=== PATIENT | female | born 1975 | race Caucasian/White ===

== ENCOUNTER → 2017-02-12 | Outpatient (CLI) | payer MEDICAID ==
[~2017-02-12] MED LIST: ASP81TEC PO; ATEN50TA PO; BARIATRIC VITAMIN PO; BREX2TAB PO; CALC600T12 PO; CARB1TAB44 PO; CETI10CA PO; CETI10TA17 PO; DOCU100T7 PO; DOXE25CA2 PO; HCT25T PO; HYDR-3816 PO; IBUP-1773 PO; LISI-552 PO; LISI10TA2 PO; LISI40TA PO; LVT.1T PO; MONT10TA21 PO; MTF500T PO; PANT40TA3 PO; TPR100T PO; TRAM-21 PO; TRAZ100T92 PO; VENL150C PO; VENL225T PO; VENL225T3 PO
--- NOTE | 2017-02-12 19:12 | Diagnostic Imaging Report ---
INDICATION: Screening. The current study was also evaluated with a Computer Aided Detection (CAD) system. FINDINGS: There is a moderate amount of residual fibroglandular tissue bilaterally. There is no dominant mass, spiculated lesion, or suspicious calcification identified. The skin, nipples, and axillae are unremarkable. IMPRESSION: Negative. ACR BI-RADS Category 1: Negative. Result letter will be mailed to the patient. Note: At least 10% of breast cancer is not imaged by mammography. Dictated by: Dictated on workstation # [id number]
== END ==
LOC: RAD 08:40
PROVIDERS: ATTEND Family Medicine
DX: Z12.31 Encounter for screening mammogram for malignant neoplasm of breast (principal)
CPT/HCPCS: 77067

== ENCOUNTER → 2018-01-23 | Outpatient (CLI) | payer OTHER ==
[~2018-01-23] MED LIST changes: +HYDR-34 PO; -HYDR-3816 PO; +TRAZ-190 PO; -TRAZ100T92 PO
--- NOTE | 2018-01-23 10:05 | Diagnostic Imaging Report ---
Indication: Back pain. Comparison: None. Findings: Two views of the lumbar column demonstrate normal alignment. Minimal degenerative changes seen throughout the disc spaces. Facet joints are normal. No osseous lesion seen. SI joints are symmetric. Impression: Minimal diffuse degenerative disc disease. Dictated by: Dictated on workstation # [id number]
--- NOTE | 2018-01-23 10:10 | Diagnostic Imaging Report ---
INDICATION: Right knee pain COMPARISON: None FINDINGS: Two views of the right knee demonstrate mild to moderate tricompartment degenerative joint disease. This is most pronounced involving the patellofemoral joint. There is no joint effusion. No osseous lesion, fracture, or dislocation. IMPRESSION: Mild/moderate degenerative joint disease. Dictated by: Dictated on workstation # [id number]
== END ==
LOC: RAD 09:38
PROVIDERS: ATTEND Internal Medicine
DX: M17.11 Unilateral primary osteoarthritis, right knee (principal); M54.9 Dorsalgia, unspecified
CPT/HCPCS: 72100; 73560

== ENCOUNTER → 2019-04-18 | Outpatient (CLI) | payer MEDICAID ==
--- NOTE | 2019-04-21 08:50 | Diagnostic Imaging Report ---
INDICATION: Screening. TECHNIQUE: The current study was also evaluated with a Computer Aided Detection (CAD) system. 3D Tomographic imaging was also performed. 3D tomosynthesis was performed and reviewed. COMPARISON: 02/12/2017, 02/08/2016, and 11/13/2014. FINDINGS: There are scattered fibroglandular densities bilaterally. There is no dominant mass, spiculated lesion, or suspicious calcification identified. The skin, nipples, and axillae are unremarkable. IMPRESSION: Negative. ACR BI-RADS Category 1: Negative. Result letter will be mailed to the patient. Note: At least 10% of breast cancer is not imaged by mammography. Dictated by: Dictated on workstation # [id number]
== END ==
LOC: RAD 15:18
PROVIDERS: ATTEND Family Medicine
DX: Z12.31 Encounter for screening mammogram for malignant neoplasm of breast (principal)
CPT/HCPCS: 77067

== ENCOUNTER → 2019-06-12 | Outpatient (CLI) | payer MEDICAID ==
[~2019-06-12] VITALS: Ht 160 cm; Wt 119.0 kg
[~2019-06-12] MED LIST changes: +CATHETER FLUSH 10 ML SYR IV PRN; +REGADENOSON 0.4 MG/5 ML SYR (LEXISCAN) IV ONE
[2019-06-12 09:38] VITALS: BP 122/77
[2019-06-12 09:40] VITALS: BP 122/77
== END ==
LOC: CARD 08:16
PROVIDERS: ATTEND Internal Medicine Interventional Cardiology
DX: E11.9 Type 2 diabetes mellitus without complications (principal); I10 Essential (primary) hypertension; R07.2 Precordial pain
CPT/HCPCS: 78452; 93017

== ENCOUNTER → 2019-06-23 | Outpatient (CLI) | payer MEDICAID ==
[~2019-06-23] MED LIST changes: -CATHETER FLUSH 10 ML SYR IV PRN; -REGADENOSON 0.4 MG/5 ML SYR (LEXISCAN) IV ONE
== END ==
LOC: CARD 13:46
PROVIDERS: ATTEND Internal Medicine Interventional Cardiology
DX: E11.9 Type 2 diabetes mellitus without complications (principal); I10 Essential (primary) hypertension
CPT/HCPCS: 93306

== ENCOUNTER → 2020-03-19 | Outpatient (CLI) | payer MEDICAID ==
[~2020-03-19] MED LIST changes: -CALC600T12 PO; +CLC600T PO; -PANT40TA3 PO; +PANT40TA52 PO; -TRAZ-190 PO; +TRAZ-227 PO
--- NOTE | 2020-03-19 13:10 | Diagnostic Imaging Report ---
INDICATION: Left breast pain. Patient denies feeling a lump at this time. Correlation is made with prior mammogram from 04/18/2019 and 02/12/2017. Unilateral left 2-D and 3-D diagnostic mammography was performed with CAD. BB marker was placed in the area of pain lateral left breast. Left breast remains heterogeneously dense, limiting the sensitivity of mammography. No mass or malignant appearing microcalcifications are seen. Left axilla is unremarkable. IMPRESSION: BI-RADS 0 No mammographic features suspicious for malignancy are identified. Even so, directed sonographic interrogation of the area of pain lateral left breast is recommended and will be performed today. ACR BI-RADS Category 0: Incomplete. (Needs additional imaging evaluation). Result letter will be mailed to the patient. Note: At least 10% of breast cancer is not imaged by mammography. Dictated by: Dictated on workstation # [id number]
--- NOTE | 2020-03-19 13:45 | Diagnostic Imaging Report ---
INDICATION: Lump and pain left breast. Correlation is made with diagnostic study earlier same day. Sonographic interrogation in the area of pain and lump in the upper-outer left breast was performed. No sonographic abnormality is seen. No solid or cystic mass is detected. IMPRESSION: BI-RADS Category 1 No sonographic abnormality is detected. ACR BI-RADS Category 1: Negative. Result letter will be mailed to the patient. Note: At least 10% of breast cancer is not imaged by mammography. Dictated by: Dictated on workstation # [id number]
== END ==
LOC: RAD 12:36
PROVIDERS: ATTEND Family Medicine
DX: N63.21 Unspecified lump in the left breast, upper outer quadrant (principal)
CPT/HCPCS: 76642

== ENCOUNTER → 2020-04-23 | Outpatient (CLI) | payer MEDICAID ==
--- NOTE | 2020-04-23 17:21 | Diagnostic Imaging Report ---
INDICATION: Routine screening. COMPARISON is made with prior mammograms from 04/18/2019 and 02/12/2017. 2-D and 3-D bilateral screening mammography was performed with CAD Both breasts are heterogeneously dense, limiting the sensitivity of mammography. No dominant mass or malignant appearing microcalcifications are seen. Axillae are unremarkable. IMPRESSION: BI-RADS Category 1 No mammographic features suspicious for malignancy are identified. Dictated by: Dictated on workstation # [id number]
== END ==
LOC: RAD 11:18
PROVIDERS: ATTEND Family Medicine
DX: Z12.31 Encounter for screening mammogram for malignant neoplasm of breast (principal)
CPT/HCPCS: 77063; 77067

== ENCOUNTER → 2021-04-25 | Outpatient (CLI) | payer MEDICAID ==
[~2021-04-25] MED LIST changes: +CALC600T91 PO; -CLC600T PO; -LISI-552 PO; -LISI10TA2 PO; +LISI10TA25 PO; +LISI20TA26 PO
--- NOTE | 2021-04-25 13:16 | Diagnostic Imaging Report ---
INDICATION: Routine screening. COMPARISON: 04/23/2020 and 04/18/2019. TECHNIQUE: 2D and 3D bilateral screening mammography was performed with CAD. FINDINGS: Both breasts are heterogeneously dense, limiting the sensitivity of mammography. The parenchymal pattern is stable. No mass or malignant-appearing microcalcifications are seen. The axillae are unremarkable. IMPRESSION: No mammographic features suspicious for malignancy are identified. ACR BI-RADS Category 1: Negative. Result letter will be mailed to the patient. Note: At least 10% of breast cancer is not imaged by mammography. Dictated by: Dictated on workstation # [id number]
== END ==
LOC: RAD 11:15
PROVIDERS: ATTEND Nurse Practitioner Family
DX: Z12.31 Encounter for screening mammogram for malignant neoplasm of breast (principal)
CPT/HCPCS: 77063; 77067

== ENCOUNTER → 2021-12-09 | Outpatient (CLI) | payer MEDICAID ==
[~2021-12-09] MED LIST changes: -VENL150C PO; +VENL150C3 PO
== END ==
LOC: CARD 09:55
PROVIDERS: ATTEND Nurse Practitioner Family
DX: I51.9 Heart disease, unspecified (principal)
CPT/HCPCS: 93306

== ENCOUNTER → 2021-12-13 | Outpatient (CLI) | payer MEDICAID ==
[~2021-12-13] MED LIST changes: +REGADENOSON 0.4 MG/5 ML SYR (LEXISCAN) IV ONE
[2021-12-13] MEDS: CATHETER FLUSH 10 ML SYR IVP PRN ×2 (07:51→09:19)
[2021-12-13 09:17] VITALS: BP 167/88
--- NOTE | 2021-12-13 23:51 | STRESS TEST ---
DATE OF SERVICE: 12/13/2021 RESTING AND POST REGADENOSON TECHNETIUM-99M TETROFOSMIN SPECT CT IMAGING ORDERING PHYSICIAN: Marilee Mayers APRN PRIMARY PHYSICIAN: Dr. Storey. CLINICAL DIAGNOSIS: Fatigue. Baseline images were carried out after injection of 10.13 mCi of technetium-99m Tetrofosmin. This was followed by 0.4 mg regadenoson and 30.2 mCi of technetium-99m Tetrofosmin for stress imaging. The electrocardiogram showed sinus rhythm at baseline. It did not change significantly with the regadenoson infusion. The patient tolerated the procedure well. Review of images at rest and following stress indicate an anterior wall perfusion defect that appears to be mostly transient. Gated images show normal global left ventricular systolic function with normal regional wall motion. Left ventricular ejection fraction is calculated to be 64%. Left ventricular end-diastolic volume is 112 mL. TID is absent (1.07). CONCLUSIONS: 1. The study is suggestive of a moderate amount of anterior ischemia. 2. Normal regional wall motion. 3. Mild cardiomegaly. 4. Normal global left ventricular systolic function with a calculated ejection fraction 64%. Job ID: [id number] DocumentID: [id number] Dictated Date: 12/13/2021 17:14:00 Hadoop Java Developer Date: 12/13/2021 23:50:26 Dictated By: JAVID BYERS MD, MA, FACP, FACC,
== END ==
LOC: CARD 08:00
PROVIDERS: ATTEND Nurse Practitioner Family
DX: I51.7 Cardiomegaly (principal)
CPT/HCPCS: 78452; 93017

== ENCOUNTER 2022-01-03 08:00 | Day surgery (SDC) | payer MEDICAID ==
[2022-01-03] VITALS (8 sets, daily range): BP systolic 114–161; BP diastolic 71–87
[~2022-01-03] VITALS: Ht 160 cm; Wt 132.1 kg
[2022-01-03 07:44] LABS: HEMATOCRIT 37 % (35-52); HEMOGLOBIN 11.2 g/dL (11.5-16.0); MEAN CORPUSCULAR HEMOGLOBIN 23 pg (25-34); MEAN CORPUSCULAR HGB CONC 31 g/dL (32-36); MEAN CORPUSCULAR VOLUME 75 fL (80-99); MEAN PLATELET VOLUME 10.7 fL (9.0-12.2); PLATELET COUNT 326 10^3/uL (130-400); WHITE BLOOD COUNT 11.6 10^3/uL (4.3-11.0)
[2022-01-03 07:54] LABS: INR 1.1 (0.8-1.4); PROTHROMBIN TIME PATIENT 14.5 SEC (12.2-14.7)
[2022-01-03 07:56] LABS: ALBUMIN 4.5 GM/DL (3.2-4.5); BILIRUBIN,TOTAL 0.5 MG/DL (0.1-1.0); CALCIUM 9.5 MG/DL (8.5-10.1); CREATININE SERUM 0.75 MG/DL (0.60-1.30); POTASSIUM 3.8 MMOL/L (3.6-5.0); TOTAL PROTEIN 7.5 GM/DL (6.4-8.2)
[~2022-01-03 08:00] MED LIST changes: +HEParin (CATH LAB) 2,000 ML IV ONE; +LIDOCAINE 1% INJ 20 ML VIAL ONE; +MIDAZOLAM 5 MG/5 ML (VERSED) VIAL ONE; +NS IV 1000 ML 1,000 ML IV SCH; +NS IV 1000 ML 1,000 ML ONE; -REGADENOSON 0.4 MG/5 ML SYR (LEXISCAN) IV ONE; +diphenhydrAMINE 50 MG/ML INJ (BENADRYL) ONE; +fentaNYL INJ 100 MCG/2 ML AMP ONE
[2022-01-03] MEDS ORDERED: CARB1TAB19 PO (08:02)
[2022-01-03] MEDS ORDERED: TRM50T PO (08:02)
[2022-01-03] MEDS ORDERED: BREX3TAB PO (08:02)
[2022-01-03] MEDS ORDERED: PANT40TA52 PO (08:02)
[2022-01-03] MEDS ORDERED: DICL100G13 TP (08:02)
[2022-01-03] MEDS ORDERED: TOPI100T11 PO (08:02)
[2022-01-03] MEDS ORDERED: FLUT9.9S NS (08:02)
[2022-01-03] MEDS ORDERED: CETI10TA17 PO (08:02)
[2022-01-03] MEDS ORDERED: DESV100T6 PO (08:02)
[2022-01-03] MEDS ORDERED: LEVO88CA4 PO (08:02)
[2022-01-03] MEDS ORDERED: LISI5TAB20 PO (08:02)
[2022-01-03] MEDS ORDERED: ACET325T38 PO (08:02)
[2022-01-03] MEDS ORDERED: TIZA-169 PO (08:02)
[2022-01-03] MEDS ORDERED: ATOR20TA66 PO (08:02)
[2022-01-03] MEDS ORDERED: METF-397 PO ×2 (08:02)
[2022-01-03] MEDS ORDERED: BUTA1CAP41 PO (08:03)
[2022-01-03] MEDS ORDERED: MULT-1136 PO (08:14)
[2022-01-03] MEDS ORDERED: PREG200C28 PO (08:14)
--- NOTE | 2022-01-03 09:55 | Cardiac Procedure Note-CS/ASA ---
Pre-Procedure Note Pre-Op Procedure Note H&P Reviewed The H&P was reviewed, patient examined and no changes noted. Date H&P Reviewed: Jan 03, 2022 Time H&P Reviewed: 08:45 Conscious Sedation Pre-Proced Time 08:45 ASA Score 3 For ASA 3 and 4: Consider anesthesia and medical clearance. Also, for patients with a history of failed moderate sedation consider anesthesia. Airway Lungs Heart ASA score ASA 1: a normal healthy patient ASA 2: a patient with a mild systemic disease (mid diabetes, controlled hypertension, obesity ASA 3: a patient with a severe systemic disease that limits activity (angina, COPD, prior Myocardial infarction) ASA 4: a patient with an incapacitating disease that is a constant threat to life (CHF, renal failure) ASA 5: a moribund patient not expected to survive 24 hrs. (ruptured aneurysm) ASA 6: a declared brain- patient whose organs are being harvested. For emergent operations, add the letter E after the classification Mallampati Classification Grade 2 Sedation Plan Analgesia, Amnesia, Plan communicated to team members The patient is an appropriate candidate to undergo the planned procedure, sedation, and anesthesia. The patient immediately re-assessed prior to indication. JAVID BYERS MD FACP FAC CCDS Jan 03, 2022 09:55
--- NOTE | 2022-01-03 09:59 | Discharge Inst-Cardiology ---
Discharge Inst-Cardiac Discharge Medications Continued Medications: Acetaminophen (Tylenol) 325 Mg Tablet 650 MG PO Q6H PRN for PAIN-MILD (1-4), TAB Atorvastatin Calcium (Atorvastatin Calcium) 20 Mg Tablet 20 MG PO DAILY, TAB Brexpiprazole (Rexulti) 3 Mg Tablet 3 MG PO DAILY, TAB Butalb/Acetaminophen/Caffeine (Arnlrv-Yxitgicm-Esbn 50-300-40) 50 Mg-300 Mg-40 Mg Capsule 1 EACH PO Q6H PRN for HEADACHE, CAP Carbidopa/Levodopa (Carbidopa-Levodopa 25-100 Tab) 25 Mg-100 Mg Tablet 1 EACH PO HS, TAB Cetirizine HCl (Cetirizine HCl) 10 Mg Tablet 10 MG PO HS, TAB Desvenlafaxine (Desvenlafaxine ER) 100 Mg Tab.er.24h 100 MG PO DAILY, TAB Diclofenac Sodium (Diclofenac Sodium) 1 % Gel..gram. 100 GM TP BID PRN for JOINT PAIN, TUBE Fluticasone Propionate (Flonase Allergy Relief) 50 Mcg/Actuation [place].susp 2 SPRAY NS DAILY PRN for CONGESTION, EACH Levothyroxine Sodium (Levothyroxine) 88 Mcg Capsule 88 MCG PO DAILY, CAP Lisinopril (Lisinopril) 5 Mg Tablet 5 MG PO DAILY, TAB Multivitamin (Multivitamin) 1 Each Tablet 1 EACH PO 1200, TAB Pantoprazole Sodium (Pantoprazole Sodium) 40 Mg Tablet.dr 40 MG PO DAILY, TAB Pregabalin (Pregabalin) 200 Mg Capsule 200 MG PO BID, CAP Tizanidine HCl (Tizanidine HCl) 2 Mg Tablet 6 MG PO HS, TAB TAKES 3 (2MG) TABLETS Topiramate (Topiramate) 100 Mg Tablet 100 MG PO BID, TAB Tramadol HCl (Tramadol HCl) 50 Mg Tablet 50 MG PO BID PRN for PAIN-MODERATE (5-7), TAB Discontinued Medications: Metformin HCl (Metformin HCl) 500 Mg Tablet 500 MG PO HS, TAB Metformin HCl (Metformin HCl) 500 Mg Tablet 1000 MG PO DAILY, TAB TAKES 2 (500MG) TABLETS Patient Instructions Patient Instructions: Hold METFORMIN until the evening of 01/05/22. Then resume previous home dose JAVID BYERS MD [facility] Jan 03, 2022 09:59
[2022-01-03] MEDS ORDERED: PATIENT MAY USE OWN MEDS, ALL PO SCH (10:00)
[2022-01-03] MEDS ORDERED: NS IV 1000 ML 1,000 ML IV SCH (10:00)
--- NOTE | 2022-01-03 10:00 | Discharge Inst-Post CATH ---
Discharge Inst-CATH/EP Post Cardiac Cath/EP D/C Inst Follow Up/Plan F/u with Dr Milner in one month ACTIVITY * Go Home directly and rest. * Limit activity of the leg (or wrist if it was used) for 7 days including aerobics, swimming, jogging, bicycling, etc. * Restrict stair-climbing for 7 days if possible, if not, climb up with your non-cath leg, then bring together on the same step. * Avoid lifting, pushing, pulling or excessive movement of the affected extremity for 7 days. * Customary sexual activity may be resumed after 2 days-use caution not to use a position that strains or causes pain to the affected extremity. * No driving for 24 hours. * NO SMOKING. * Avoid straining for bowel movements for 7 days. * Gentle walking on level ground is allowed. * Returning to work will depend on the type of procedure and the results. Your doctor will discuss this with you. CALL YOUR DOCTOR FOR ANY OF THE FOLLOWING: *If bleeding from the puncture site occurs- Apply gentle pressure to site with clean cloth and call your doctor or EMS. * If a knot or lump forms under the skin, increases in size, or causes pain. * If bruising appears to be worsening or moving further down your leg instead of disappearing. * Temperature above 101 F. CARE OF YOUR GROIN INCISION; * Bruising or purple discoloration of the skin near the puncture site is common. * You may shower only, no bathtub bathing for 5 days. Be careful to avoid slipping as your leg may feel stiff. * If a closure device was used on your femoral artery, please see the attached guide regarding care of the device and your leg. * Leave dressing on FOR 24 hours. CARE OF YOUR WRIST INCISION; * Bruising or purple discoloration of the skin near the puncture site is common. * You may shower. * DO NOT submerge wrist. * Leave dressing on FOR 24 hours. JAVID MILNER MD [facility] CCDS Jan 03, 2022 10:00
--- NOTE | 2022-01-03 15:18 | CARDIAC CATHETERIZATION ---
DATE OF SERVICE: 01/03/2022 CARDIAC CATHETERIZATION The patient is a 46-year-old lady with coronary artery disease risk factors. She has been experiencing symptoms of fatigue and shortness of breath. Myocardial perfusion imaging indicated anteroapical ischemia. Cardiac catheterization was carried out today after having obtained an informed consent. DESCRIPTION OF PROCEDURE: She was brought to the cardiac catheterization laboratory in a fasting state. Right groin was prepared and draped in the usual sterile fashion. Lidocaine 1% was used for local anesthesia. Modified Seldinger technique was used to advance a 5[place] sheath in right femoral artery, 5[place] JL4 catheter for left coronary angiography, [place] JR4 catheter was used for right heart catheterization, right ventricular angiography and right coronary angiography. At the end of the procedure, angiography of the right femoral artery was carried out through the sheath. Mynx was used to achieve hemostasis. She tolerated the procedure well. HEMODYNAMICS: Left ventricular end-diastolic pressure following coronary angiography was 21 mmHg. There was no significant pressure gradient on pullback across the aortic valve. CORONARY ANGIOGRAPHY: Left main coronary artery, left anterior descending artery, left circumflex artery, right coronary artery do not exhibit angiographically significant disease. Right coronary artery is dominant. LEFT VENTRICULAR ANGIOGRAPHY: Left ventricular angiography was carried out in the right anterior oblique projection only. Only a few friends are available for examination because the catheter kicked back. On the views available, left ventricular ejection fraction appears to be within normal range. CONCLUSIONS: 1. No angiographically significant coronary artery disease. 2. Normal global left ventricular systolic function with ejection fraction approximately 55% to 60%. 3. Elevated left ventricular end-diastolic pressure. DISCUSSION AND RECOMMENDATIONS: Based on results of the study, it appears appropriate to continue a conservative approach. Risk factor modification has been reviewed. Outpatient followup is advised. Job ID: [id number] DocumentID: [id number] Dictated Date: 01/03/2022 09:46:58 Equipment Or Machinery Cleaner Date: 01/03/2022 15:17:35 Dictated By: JAVID BYERS MD, MA, FACP, FACC,
== END 2022-01-03 13:35 | disposition home or self-care (01) ==
LOC: CATH 08:00 → SDC 10:36 → CATH 13:35
PROVIDERS: ATTEND Internal Medicine Cardiovascular Disease
DX: R06.02 Shortness of breath (principal); R53.83 Other fatigue; G47.33 Obstructive sleep apnea (adult) (pediatric); E78.2 Mixed hyperlipidemia; I11.9 Hypertensive heart disease without heart failure; E66.9 Obesity, unspecified; Z68.43 Body mass index [BMI] 50.0-59.9, adult; Z87.891 Personal history of nicotine dependence; Z86.16 Personal history of COVID-19
CPT/HCPCS: 36415; 80053; 80061; 85027; 85610; 85730; 87081; 93005; 93458

== ENCOUNTER → 2022-01-09 | Outpatient (CLI) | payer MEDICAID ==
[~2022-01-09] MED LIST changes: +ACET325T38 PO; +ATOR20TA66 PO; +BREX3TAB PO; +BUTA1CAP41 PO; +CARB1TAB19 PO; +DESV100T6 PO; +DICL100G13 TP; +FLUT9.9S NS; -HEParin (CATH LAB) 2,000 ML IV ONE; +LEVO88CA4 PO; -LIDOCAINE 1% INJ 20 ML VIAL ONE; +LISI5TAB20 PO; +METF-397 PO; -MIDAZOLAM 5 MG/5 ML (VERSED) VIAL ONE; +MULT-1136 PO; -NS IV 1000 ML 1,000 ML IV SCH; -NS IV 1000 ML 1,000 ML ONE; +PREG200C28 PO; +TIZA-169 PO; +TOPI100T11 PO; +TRM50T PO; -diphenhydrAMINE 50 MG/ML INJ (BENADRYL) ONE; -fentaNYL INJ 100 MCG/2 ML AMP ONE
--- NOTE | 2022-01-09 11:48 | Diagnostic Imaging Report ---
Indication: Groin pain and swelling post catheterization. Findings: Femoral pseudoaneurysm measures 2 cm in diameter and is patent. Its neck measured about 8 mm transverse and appears less than 1 cm in length. There is partial thrombus within the pseudoaneurysmal sac but its largely patent. Adjacent to the pseudoaneurysm is a 1.7 cm maximal dimension collection likely hematoma. No AV fistula. Impression: Short broad neck patent pseudoaneurysm with the sac measuring about 2 cm. There is a small adjacent hematoma peripheral to the pseudoaneurysm. No AV fistula. Ordering service notified of the pertinent findings prior to this dictation. Dictated by: Dictated on workstation # [id number]
== END ==
LOC: RAD 10:19
PROVIDERS: ATTEND Nurse Practitioner Family
DX: I72.4 Aneurysm of artery of lower extremity (principal); S70.11XA Contusion of right thigh, initial encounter
CPT/HCPCS: 93926

== ENCOUNTER → 2022-05-05 | Outpatient (CLI) | payer MEDICAID ==
[~2022-05-05] MED LIST changes: -CARB1TAB19 PO; +CARB1TAB32 PO
--- NOTE | 2022-05-08 11:11 | Diagnostic Imaging Report ---
INDICATION: Routine screening. Comparison is made with prior mammograms of 04/25/2021 and 04/23/2020. 2-D and 3-D bilateral screening mammography was performed with CAD. Both breasts are heterogeneously dense, limiting the sensitivity of mammography. The parenchymal pattern is stable. No mass or malignant-appearing microcalcifications are seen. Axillae are unremarkable. IMPRESSION: No mammographic features suspicious for malignancy are identified. ACR BI-RADS Category 1: Negative. Result letter will be mailed to the patient. Note: At least 10% of breast cancer is not imaged by mammography. BI-RADS Category 1 Dictated by: Dictated on workstation # [id number]
== END ==
LOC: RAD 15:15
PROVIDERS: ATTEND Nurse Practitioner
DX: Z12.31 Encounter for screening mammogram for malignant neoplasm of breast (principal)
CPT/HCPCS: 77063; 77067

== ENCOUNTER → 2023-05-14 | Outpatient (CLI) | payer MEDICAID ==
[~2023-05-14] MED LIST changes: -DICL100G13 TP; +DICL100G60 TP; -PREG200C28 PO; +PREG200C29 PO
--- NOTE | 2023-05-14 16:26 | Diagnostic Imaging Report ---
INDICATION: Routine screening. COMPARISON: 05/05/2022 and 04/25/2021. TECHNIQUE: 2D and 3D bilateral screening mammography was performed with CAD. FINDINGS: Both breasts are heterogeneously dense, limiting the sensitivity of mammography. The parenchymal pattern is stable. No mass or malignant-appearing microcalcifications are identified. The axillae are unremarkable. IMPRESSION: No mammographic features suspicious for malignancy are identified. ACR BI-RADS Category 1: Negative. Result letter will be mailed to the patient. Note: At least 10% of breast cancer is not imaged by mammography. Dictated by: Dictated on workstation # [id number]
== END ==
LOC: RAD 15:18
PROVIDERS: ATTEND Nurse Practitioner
DX: Z12.31 Encounter for screening mammogram for malignant neoplasm of breast (principal)
CPT/HCPCS: 77063; 77067

== ENCOUNTER 2023-05-26 06:52 | Emergency (ER) | payer MEDICAID ==
[~2023-05-26 06:52] MED LIST changes: -VENL150C3 PO; +VENL150C4 PO
--- NOTE | 2023-05-26 07:45 | ED Chest Pain ---
General Chief Complaint: Chest Pain Stated Complaint: HIGH BLOOD PRESSURE,LOW PULSE Nursing Triage Note: PT AMB TO RM 6 PT MAY HAVE HAD A STROKE LAST WEEK, PT STATES HAS HTN. TAKES PUFFS ON THC VAPE AND FELT POP BEHIND R EYE AND L SIDE WENT RIGID AND NUMB AND WENT AWAY. STATES LASTED 5-10 MIN.BUT NOT SURE IF HALLUCINATED IT. HAS BEEN READING ON INTERNET. Source: patient Exam Limitations: no limitations History of Present Illness Date Seen by Provider: May 26, 2023 Time Seen by Provider: 07:02 Initial Comments Ms Yoo is a 48-year-old woman who presents to the emergency room with several concerns. She woke up with chest pain around 0600 this morning. It was dull and central in nature, rated as 2/10. By the time I concluded my interview, chest pain had resolved. She reports prior episodes of chest pain as well. Pain is better with deep breathing and lying down. Heart cath in December 2021 revealed no significant disease. She additionally noted a heart rate as low as 58 this morning which is unusual for her. However, she did start Toprol XL 25 mg with her first dose at approximately 1500. She has additionally had hypertension recently. She has not yet taken her medication this morning. She reports some neurologic symptoms last night that started with a popping sensation behind her right eye. She then felt a numb tingling from her right jaw to her waist. This episode lasted about 5 minutes. She denies any neurologic deficits at this time. She reports recent headaches and blurriness in her right eye over the past few days. She denies any visual field cut deficits. She describes her vision as feeling "off". She reports using a THC vape at the time of the symptoms yesterday. She thinks her symptoms may have been related to the THC effect. She is accustomed to using THC vape nightly before bed to help her sleep. She obtains the product from a licensed dispensary in [place]. She has diabetes but does not check her blood sugars. She reports her A1c has been fairly low. She takes Trulicity and metformin but not insulin. She reports a 60 pound weight loss. Her primary care provider is Dr. Pierce. Her expanded function dental assistant is Dr. Milner. Her preferred pharmacy is [facility] in [place]. Allergies and Home Medications Allergies Coded Allergies: Iodinated Contrast Media (Verified Allergy, Intermediate, RASH, 11/02/15) codeine (Verified Allergy, Intermediate, RASH, 11/02/15) metoprolol (Verified Adverse Reaction, Mild, Bradycardia, 05/26/23) HR dropped to low 50s with Toprol XL 25 mg. Patient Home Medication List Home Medication List Reviewed: Yes Acetaminophen (Tylenol) 325 Mg Tablet, 650 MG PO Q6H PRN for PAIN-MILD (1-4), (Reported) Entered as Reported by: GAURANG TAPIA on 01/03/22801 Atorvastatin Calcium (Atorvastatin Calcium) 20 Mg Tablet, 20 MG PO DAILY, (Reported) Entered as Reported by: GAURANG TAPIA on 01/03/22801 Brexpiprazole (Rexulti) 3 Mg Tablet, 3 MG PO DAILY, (Reported) Entered as Reported by: GAURANG TAPIA on 01/03/22801 Butalb/Acetaminophen/Caffeine (Meaabn-Fjoogxpn-Jknr 50-300-40) 50 Mg-300 Mg-40 Mg Capsule, 1 EACH PO Q6H PRN for HEADACHE, (Reported) Entered as Reported by: GAURANG TAPIA on 01/03/22802 Carbidopa/Levodopa (Carbidopa-Levodopa 25-100 Tab) 25 Mg-100 Mg Tablet, 1 EACH PO HS, (Reported) Entered as Reported by: GAURANG TAPIA on 01/03/22801 Cetirizine HCl (Cetirizine HCl) 10 Mg Tablet, 10 MG PO HS, (Reported) Entered as Reported by: GAURANG TAPIA on 01/03/22801 Desvenlafaxine (Desvenlafaxine ER) 100 Mg Tab.er.24h, 100 MG PO DAILY, (Reported) Entered as Reported by: GAURANG TAPIA on 01/03/22801 Diclofenac Sodium (Diclofenac Sodium) 1 % Gel..gram., 100 GM TP BID PRN for JOINT PAIN, (Reported) Entered as Reported by: GAURANG TAPIA on 01/03/22801 Fluticasone Propionate (Flonase Allergy Relief) 50 Mcg/Actuation [place].susp, 2 SPRAY NS DAILY PRN for CONGESTION, (Reported) Entered as Reported by: GAURANG TAPIA on 01/03/22801 Levothyroxine Sodium (Levothyroxine) 88 Mcg Capsule, 88 MCG PO DAILY, (Reported) Entered as Reported by: GAURANG TAPIA on 01/03/22801 Lisinopril (Lisinopril) 5 Mg Tablet, 5 MG PO DAILY, (Reported) Entered as Reported by: GAURANG TAPIA on 01/03/22801 Multivitamin (Multivitamin) 1 Each Tablet, 1 EACH PO 1200, (Reported) Entered as Reported by: GAURANG TAPIA on 01/03/22813 Pantoprazole Sodium (Pantoprazole Sodium) 40 Mg Tablet.dr, 40 MG PO DAILY, (Reported) Entered as Reported by: GAURANG TAPIA on 01/03/22801 Pregabalin (Pregabalin) 200 Mg Capsule, 200 MG PO BID, (Reported) Entered as Reported by: GAURANG TAPIA on 01/03/22813 Tizanidine HCl (Tizanidine HCl) 2 Mg Tablet, 6 MG PO HS, (Reported) Entered as Reported by: GAURANG TAPIA on 01/03/22801 Topiramate (Topiramate) 100 Mg Tablet, 100 MG PO BID, (Reported) Entered as Reported by: GAURANG TAPIA on 01/03/22801 Tramadol HCl (Tramadol HCl) 50 Mg Tablet, 50 MG PO BID PRN for PAIN-MODERATE (5- 7), (Reported) Entered as Reported by: GAURANG TAPIA on 01/03/22801 Review of Systems Review of Systems Constitutional: see HPI, weight loss EENTM: See HPI Respiratory: No Symptoms Reported Cardiovascular: See HPI Gastrointestinal: No Symptoms Reported Genitourinary: No Symptoms Reported Musculoskeletal: no symptoms reported Skin: no symptoms reported Psychiatric/Neurological: See HPI Endocrine: See HPI Hematologic/Lymphatic: No Symptoms Reported Past Haamkjs-Tjjiph-Uksknx Hx Patient Social History Tobacco Use?: No Smoking Status: Former Smoker Substance use?: Yes Substance type: Marijuana Alcohol Use?: Yes Alcohol Frequency: Rarely Pt feels they are or have been: No Immunizations Up To Date Influenza Vaccine Up-to-Date: Yes; Up-to-Date First/Initial COVID19 Vaccinat: YES Second COVID19 Vaccination Michael: YES Third COVID19 Vaccination Date: YES Past Medical History Surgery/Hospitalization HX: HTN, DIABETES, FIBRO, PTSD, DEPRESSION,ANXIETY, RESTLESS LEG, MIGRAINE, SLEEP APNEA T AND A, 3 , GB, HYST, LYPOMA REMOVALS, HERNIA REPAIR Surgeries: Yes Abdominal (Hernia), Cardiac (Heart cath 2021 without interventions), Section, Gallbladder, Hysterectomy, Tonsillectomy Respiratory: Yes Sleep Apnea Currently Using CPAP: Yes Cardiac: Yes High Cholesterol, Hypertension Neurological: Yes Headaches /Migraines : No Reproductive Disorders: Yes (MENORRHAGIA) Female Reproductive Disorders: Menstrual Problems Sexually Transmitted Disease: No HIV/AIDS: No Genitourinary: No Gastrointestinal: Yes Gastroesophageal Reflux, Chronic Constipation Musculoskeletal: Yes Chronic Back Pain Endocrine: Yes Hypothyroidsim, Diabetes, Non-Insulin dep HEENT: No Loss of Vision: Denies Hearing Impairment: Denies Psychosocial: Yes Anxiety, PTSD, Depression Eczema Adverse Reaction/Blood Tranf: No (N/A) Family Medical History ANXIETY 19 FATHER G8 BROTHER Abdominal aortic aneurysm Alcoholism 19 MOTHER Arthritis 19 MOTHER Diabetes mellitus 19 FATHER Hypertension 19 FATHER 19 MOTHER G8 BROTHER MENTAL PROBLEMS 19 MOTHER Physical Exam Vital Signs Vital Signs - First Documented 05/26/23 07:01 Temp 36.0 Pulse 66 Resp 16 B/P (MAP) 173/98 (123) Pulse Ox 98 Capillary Refill : Less Than 3 Seconds Height, Weight, BMI Height: 5'3.00" Weight: 286lbs. 8.0oz. 129.565650vh; 51.60 BMI Method: General Appearance: No Apparent Distress, WD/WN, Obese HEENT: PERRL/EOMI, TMs Normal, Normal ENT Inspection Neck: Normal Inspection; No JVD Respiratory: Chest Non Tender, Lungs Clear, Normal Breath Sounds, No Accessory Muscle Use Cardiovascular: Regular Rate, Rhythm, No Edema, No Murmur Gastrointestinal: Normal Bowel Sounds, Non Tender, Soft; No Distended Extremity: Normal Inspection, Non Tender, No Pedal Edema Neurologic/Psychiatric: Alert, Oriented x3, No Motor/Sensory Deficits, Normal Mood/Affect, international logistics manager II-XII Norm as Tested, Other (Normal gzukcu-na-xvmy and kyus-ey-vxum) Skin: Normal Color, Warm/Dry Progress/Results/Core Measures Results/Orders Lab Results Laboratory Tests Test 05/26/23 07:10 Range/Units White Blood Count 9.2 4.3-11.0 10^3/uL Red Blood Count 4.65 3.80-5.11 10^6/uL Hemoglobin 12.1 11.5-16.0 g/dL Hematocrit 39 35-52 % Mean Corpuscular Volume 84 80-99 fL Mean Corpuscular Hemoglobin 26 25-34 pg Mean Corpuscular Hemoglobin Concent 31 L 32-36 g/dL Red Cell Distribution Width 16.5 H 10.0-14.5 % Platelet Count 267 130-400 10^3/uL Mean Platelet Volume 11.6 9.0-12.2 fL Immature Granulocyte % (Auto) 0 % Neutrophils (%) (Auto) 60 42-75 % Lymphocytes (%) (Auto) 31 12-44 % Monocytes (%) (Auto) 7 0-12 % Eosinophils (%) (Auto) 2 0-10 % Basophils (%) (Auto) 1 0-10 % Neutrophils # (Auto) 5.5 1.8-7.8 10^3/uL Lymphocytes # (Auto) 2.8 1.0-4.0 10^3/uL Monocytes # (Auto) 0.6 0.0-1.0 10^3/uL Eosinophils # (Auto) 0.2 0.0-0.3 10^3/uL Basophils # (Auto) 0.1 0.0-0.1 10^3/uL Immature Granulocyte # (Auto) 0.0 0.0-0.1 10^3/uL Prothrombin Time 13.7 12.2-14.7 SEC INR Comment 1.0 0.8-1.4 Activated Partial Thromboplast Time 48 H 24-35 SEC Sodium Level 143 135-145 MMOL/L Potassium Level 3.6 3.6-5.0 MMOL/L Chloride Level 111 H 98-107 MMOL/L Carbon Dioxide Level 22 21-32 MMOL/L Anion Gap 10 5-14 MMOL/L Blood Urea Nitrogen 11 7-18 MG/DL Creatinine 0.72 0.60-1.30 MG/DL Estimat Glomerular Filtration Rate 102 BUN/Creatinine Ratio 15 Glucose Level 92 70-105 MG/DL Calcium Level 9.5 8.5-10.1 MG/DL Magnesium Level 2.2 1.6-2.4 MG/DL Myoglobin 24.0 10.0-92.0 NG/ML Troponin I < 0.028 <0.028 NG/ML Thyroid Stimulating Hormone (TSH) 1.19 0.35-4.94 UIU/ML Free Thyroxine 0.99 0.70-1.48 NG/DL My Orders Orders - MATI SANTAMARIA MD Ekg Tracing (05/26/23 07:02) Monitor-Rhythm Ecg Trace Only (05/26/23 07:02) Ed Iv/Invasive Line Start (05/26/23 07:03) Basic Metabolic Panel (05/26/23 07:03) Thyroid Stimulating Hormone (05/26/23 07:03) Free T4 (Free Thyroxine) (05/26/23 07:03) Cbc And Automated Diff (05/26/23 07:26) Magnesium (05/26/23 07:26) Chest 1 View, Ap/Pa Only (05/26/23:26) Myoglobin Serum (05/26/23 07:26) Protime With Inr (05/26/23 07:26) Partial Thromboplastin Time (05/26/23:26) O2 (05/26/23:26) Troponin I [place] (05/26/23 07:26) Ct Head Wo-R/O Stroke (05/26/23 07:26) Vital Signs/I&O 05/26/23 05/26/23 07:01 09:07 Temp 36.0 Pulse 66 60 Resp 16 16 B/P (MAP) 173/98 (123) 147/89 Pulse Ox 98 98 Blood Pressure Mean: 123 Progress Progress Note #1: Time: 07:37 Progress Note Rin was interviewed and examined during nursing triage. I reviewed medications, chief complaint, and chart prior to examining patient. She has varied complaints including chest pain this morning and neurologic symptoms last night. She is no longer having chest pain at this time. Chart has been reviewed and cardiac cath from December 2021 was noted. There was no evidence of significant coronary artery disease. Ejection fraction was 55 to 60%. Labs have been ordered and are pending. ECG was unremarkable for arrhythmia or ischemia as noted in my interpretation below. Imaging studies are pending. Patient is no longer having neurologic symptoms, but she is quite concerned about possible intracranial hemorrhage with her hypertension and headache. I believe it is reasonable to obtain CT of the head to evaluate her neurologic complaints. CT is pending at this time. Progress Note #2: Time: 08:06 Progress Note I have reviewed the CT scan of the head and the chest x-ray. I have appreciated no acute abnormalities on either study by my independent interpretation. Radiologist's reports are pending. Progress Note #3: Progress Note Radiologist's reports were reviewed. No additional findings were appreciated. Discharge instructions were thoroughly reviewed as noted below. Initial ECG Impression Date: May 26, 2023 Initial ECG Impression Time: 07:08 Initial ECG Rate: 64 Initial ECG Rhythm: Normal Sinus Initial ECG Intervals: Normal Comment Normal sinus rhythm with no ST elevation or depression. Nonspecific intraventricular conduction delay with QRSD of 120 ms. No other abnormal intervals or axis deviation. Diagnostic Imaging Diagonstic Imaging: CT Plain Films/CT/US/NM/MRI: head Comments NAME: RIN YOO [employer] REC#: [id number] PT STATUS: REG ER : 1975 PHYSICIAN: MATI SANTAMARIA MD ADMIT DATE: 05/26/23/ER Draft Date of Exam:05/26/23 CHEST 1 VIEW, AP/PA ONLY Indication: Chest pain. Time of Exam: 7:36 AM Comparison is made with prior chest from 11/02/2015. Findings: The heart size is normal. The pulmonary vascularity is unremarkable. The lungs are clear. No infiltrate, effusion or pneumothorax is detected. Impression: No acute cardiopulmonary process is detected.. Dictated on workstation # [id number] Dict: 05/26/23 0804 Trans: 05/26/23 0807 [facility] [id number] Interpreted by: LITZY LARSON MD Diagonstic Imaging: Xray Plain Films/CT/US/NM/MRI: chest Comments NAME: RIN YOO [employer] [facility] REC#: [id number] PT STATUS: REG ER : 1975 PHYSICIAN: MATI SANTAMARIA MD ADMIT DATE: 05/26/23/ER Draft Date of Exam:05/26/23 CHEST 1 VIEW, AP/PA ONLY Indication: Chest pain. Time of Exam: 7:36 AM Comparison is made with prior chest from 11/02/2015. Findings: The heart size is normal. The pulmonary vascularity is unremarkable. The lungs are clear. No infiltrate, effusion or pneumothorax is detected. Impression: No acute cardiopulmonary process is detected.. Dictated on workstation # [id number] Dict: 05/26/23803 Trans: 05/26/23806 CV [id number] Interpreted by: LITZY LARSON MD Departure Impression Primary Impression: Atypical chest pain Additional Impressions: Hypertension Qualified Codes: I10 - Essential (primary) hypertension Bradycardia Acute headache Qualified Codes: R51.9 - Headache, unspecified Paresthesia Visual disturbance Disposition: HOME, SELF-CARE Condition: Stable Departure-Patient Inst. Decision time for Depature: 08:58 Referrals: REINA PIERCE MD (PCP/Family) Primary Care Physician Patient Instructions: Bradycardia, Chest Pain Add. Discharge Instructions: Your heart rate is low today. Low heart rate is called bradycardia. This was likely caused by the metoprolol succinate (Toprol-XL) that you started yesterday. Metoprolol is in the class of medications called beta-blockers. These medications can lower your heart rate. It appears that you are not able to tolerate this effect as your heart rate seems to be too low. Stop the metoprolol and list bradycardia as an adverse reaction to metoprolol when you are asked about allergies in future healthcare encounters. You may experience some fatigue or possibly even lightheadedness until the effect of metoprolol wears off. This may take up to 24 hours. If the symptoms become severe, return to the emergency room. If your blood pressure is still high tomorrow, I suggest increasing your lisinopril dose from 10 mg to 20 mg. Continue at that dose until you can discuss further with Dr. Pierce or Dr. Milner. Follow-up with your primary care provider soon as possible. Discuss blood sugar monitoring with your doctor. It is possible that you may be experiencing some lower blood sugars after losing a significant amount of weight. Your Trulicity dosing may need to be adjusted. Be sure to drink plenty of clear liquids to stay well-hydrated, especially today while your heart rate is lower. Please also contact Dr. Milner's office on Sunday to schedule a follow-up and report your low heart rate on the metoprolol. Your chest pain is not likely related to any serious heart condition. Your cardiac workup was normal in the emergency room and you had no evidence of heart disease on your heart cath last year. You may take Tylenol (acetaminophen) up to 1000 mg every 6 hours as needed for general treatment of aches and pains. Return to the emergency room if you have any other significant concerns or worsening of condition. All discharge instructions reviewed with patient and/or family. Voiced understanding. Copy Copies To 1: JAVID MILNER MD FACP FACC CCDS Copies To 2: REINA PIERCE MD, JOSHUA T MD May 26, 2023 07:45
[2023-05-26 07:48] LABS: POTASSIUM 3.6 MMOL/L (3.6-5.0)
[2023-05-26 07:50] LABS: CALCIUM 9.5 MG/DL (8.5-10.1)
[2023-05-26 07:54] LABS: CREATININE SERUM 0.72 MG/DL (0.60-1.30)
--- NOTE | 2023-05-26 08:08 | Diagnostic Imaging Report ---
Indication: Chest pain. Time of Exam: 7:36 AM Comparison is made with prior chest from 11/02/2015. Findings: The heart size is normal. The pulmonary vascularity is unremarkable. The lungs are clear. No infiltrate, effusion or pneumothorax is detected. Impression: No acute cardiopulmonary process is detected.. Dictated by: Dictated on workstation # [id number]
--- NOTE | 2023-05-26 08:09 | Diagnostic Imaging Report ---
PROCEDURE: CT head wo r/o stroke. TECHNIQUE: Multiple contiguous axial images were obtained through the brain without the use of intravenous contrast. Auto Exposure Controls were utilized during the CT exam to meet ALARA standards for radiation dose reduction. INDICATION: Hypertension and pain behind right eye as well as left-sided rigidity and numbness. No prior studies are available for comparison. Ventricles and sulci are within normal limits. There is no sulcal effacement or midline shift. No acute intra-axial or extra-axial hemorrhage is detected. Cisterns are patent. Visualized paranasal sinuses are clear. IMPRESSION: No acute intracranial process is detected. Dictated by: Dictated on workstation # [id number]
[2023-05-26 08:17] LABS: FREE T4 (FREE THYROXINE) 0.99 NG/DL (0.70-1.48)
[2023-05-26 08:18] LABS: BASOPHILS # (AUTO) 0.1 10^3/uL (0.0-0.1); BASOPHILS % (AUTO) 1 % (0-10); EOSINOPHILS # (AUTO) 0.2 10^3/uL (0.0-0.3); EOSINOPHILS % (AUTO) 2 % (0-10); HEMATOCRIT 39 % (35-52); HEMOGLOBIN 12.1 g/dL (11.5-16.0); LYMPHOCYTES # (AUTO) 2.8 10^3/uL (1.0-4.0); LYMPHOCYTES % (AUTO) 31 % (12-44); MEAN CORPUSCULAR HEMOGLOBIN 26 pg (25-34); MEAN CORPUSCULAR HGB CONC 31 g/dL (32-36); MEAN CORPUSCULAR VOLUME 84 fL (80-99); MEAN PLATELET VOLUME 11.6 fL (9.0-12.2); MONOCYTES # (AUTO) 0.6 10^3/uL (0.0-1.0); MONOCYTES % (AUTO) 7 % (0-12); NEUTROPHILS # (AUTO) 5.5 10^3/uL (1.8-7.8); NEUTROPHILS % (AUTO) 60 % (42-75); PLATELET COUNT 267 10^3/uL (130-400); WHITE BLOOD COUNT 9.2 10^3/uL (4.3-11.0)
[2023-05-26 08:31] LABS: MAGNESIUM 2.2 MG/DL (1.6-2.4)
[2023-05-26 08:41] LABS: PROTHROMBIN TIME PATIENT 13.7 SEC (12.2-14.7)
[2023-05-26 09:07] VITALS: BP 147/89
== END 2023-05-26 09:14 | disposition home or self-care (01) ==
LOC: EDUNIT# 06:52 → ER 06:55
DX: I10 Essential (primary) hypertension (principal); R00.1 Bradycardia, unspecified; H53.9 Unspecified visual disturbance; R20.2 Paresthesia of skin; E66.9 Obesity, unspecified; G47.30 Sleep apnea, unspecified; Z87.891 Personal history of nicotine dependence; Z98.61 Coronary angioplasty status; Z68.43 Body mass index [BMI] 50.0-59.9, adult
CPT/HCPCS: 36415; 70450; 71045; 80048; 83735; 83874; 84439; 84443; 84484; 85025; 85610; 85730; 93005; 93041